=== PATIENT | female | born 1990 | race Caucasian/White ===

== ENCOUNTER 2017-06-04 14:51 | Outpatient (CLI) | payer BC ==
[~2017-06-04] VITALS: Ht 157.5 cm; Wt 63.6 kg
[2017-06-04 15:12] VITALS: BP 123/77; PULSE 73; TEMP 98.1
[2017-06-04] MEDS ORDERED: PRENATAL MVI (15:16)
[2017-06-04 16:35] VITALS: BP 107/73; PULSE 71
== END 2017-06-04 16:55 | disposition home or self-care (01) ==
LOC: LDRO 14:51 → LDR 15:00 → LDRO 16:55
DX: Z34.03 Encounter for supervision of normal first pregnancy, third trimester (principal); Z3A.38 38 weeks gestation of pregnancy
CPT/HCPCS: OP

== ENCOUNTER 2017-06-04 22:44 | Inpatient (IN) | payer BC ==
[~2017-06-04] VITALS: Ht 157.5 cm; Wt 63.6 kg
[~2017-06-04 22:44] MED LIST: PRENATAL MVI
[2017-06-04 23:30] VITALS: BP 112/75; PULSE 57; TEMP 97.7
[2017-06-05] VITALS (73 sets, daily range): BP systolic 93–148; BP diastolic 48–86; PULSE 59–114; TEMP 97.4–98.3
[2017-06-05 05:57] LABS: BASO % 0.3 % (0.0-2.0); EOS # 0.1 (0.0-0.7); EOS % 1.2 % (0-4.0); GRAN # 8.9 (1.4-6.5); GRAN % 76.8 % (42.2-75.2); HEMATOCRIT 36.1 % (37.0-47.0); HEMOGLOBIN 12.4 g/dl (12.5-16.0); LYMPH # 1.8 (1.2-3.4); LYMPH % 15.7 % (20.0-51.0); MEAN CELL VOLUME 88 fl (80.0-100.0); MEAN CORPUSCULAR HEMOGLOBIN 30 pg (27.0-31.0); MEAN CORPUSCULAR HGB CONC 34 g/dl (33.0-37.0); MEAN PLATELET VOLUME 10.1 fl (7.4-10.4); MONO # 0.6 (0.1-0.6); MONO % 5.5 % (1.7-9.3); PLATELET COUNT 203 K/mm3 (130-400); RED BLOOD COUNT 4.12 M/mm3 (4.10-5.30); REDCELL DISTRIBUTION WIDTH-CV 12.1 % (11.5-14.5); WHITE BLOOD COUNT 11.6 K/mm3 (4.8-10.8)
[2017-06-06 00:15] VITALS: BP 100/62; PULSE 87
[2017-06-06 01:15] VITALS: BP 100/64; PULSE 104
[2017-06-06 05:24] VITALS: BP 102/68; PULSE 92; TEMP 98
[2017-06-06 07:45] VITALS: BP 128/72; PULSE 82; TEMP 97.4
[2017-06-06 20:30] VITALS: BP 106/61; PULSE 90; TEMP 97.6
[2017-06-07 07:59] VITALS: BP 94/55; PULSE 103; TEMP 98.9
[2017-06-07] MEDS ORDERED: PERCOCET 325 MG1 TA2 PO (08:46)
[2017-06-07] MEDS ORDERED: IBU600 MG PO (08:46)
[2017-06-07 16:00] VITALS: BP 89/52; PULSE 78; TEMP 97.3
[2017-06-07 21:30] VITALS: BP 106/64; PULSE 97; TEMP 98.5
[2017-06-08 08:08] VITALS: BP 94/48; PULSE 68; TEMP 98
== END 2017-06-08 12:20 | disposition home or self-care (01) | DRG 766 ==
LOC: LDRO 22:44 → LDR 06-05 05:04 → OB 06-05 05:04
PROVIDERS: Obstetrics & Gynecology
PROC: 10D00Z1 Extraction of Products of Conception, Low, Open Approach (ICD-10-PCS; principal; 2017-06-05)
DX: O62.0 Primary inadequate contractions (principal); O76 Abnormality in fetal heart rate and rhythm complicating labor and delivery; Z3A.39 39 weeks gestation of pregnancy; Z37.0 Single live birth
CPT/HCPCS: OP; J0595; J0690; J1885; J2210; J2270; J2370; J2400; J2405; J2590; J7120

== ENCOUNTER 2018-11-29 12:22 | Outpatient (CLI) | payer BC ==
[~2018-11-29] VITALS: Ht 157.5 cm; Wt 67.3 kg
--- NOTE | 2018-11-29 12:15 | NUR ---
Patient arrives ambulatory with spouse from office for monitoring. Patient reports contractions that have increased in frequency to 2-3 minutes. Patient denies bleeding or ROM. Reports normal movement. Changes into gown, EFM explained and placed. VSS. Assessment completed. 1225- Dr. Adam notified via Cyndee Rich RN. Reviewed FHR strip and ctx pattern since admit. Orders to recheck patient at this time and monitor over one hour. 1230- SVE by Cyndee Rich RN . Patient repositioned WL and updated on plan of care.
[~2018-11-29 12:22] MED LIST changes: +IBU600 MG PO; +PERCOCET 325 MG1 TA2 PO
--- NOTE | 2018-11-29 12:45 | NUR ---
Dr. Adam on unit. Reviewed FHR strip. Orders for LR bolus at this time. Physician remains on unit. 1305- Patient repositioned RL. 1315- IV started in RH by Laura Tucker RN. LR bolus infusing. 1325- Dr. Adam on unit, reviews FHR strip. Orders to monitor patient over another hour and recheck at 1430. Update physician at that time.
[2018-11-29 13:00] VITALS: BP 124/80; PULSE 79; TEMP 98.1
[2018-11-29 13:03] VITALS: BP 124/80; PULSE 79; TEMP 98.1
[2018-11-29 13:30] VITALS: BP 113/61; PULSE 84
[2018-11-29 14:00] VITALS: BP 103/70; PULSE 99
--- NOTE | 2018-11-29 14:15 | NUR ---
Patient states contractions are "about the same". Resting in bed, repositioned RL.
--- NOTE | 2018-11-29 14:30 | NUR ---
SVE unchanged. Patient repositioned LL. Patient reports contractions "are about the same". See physician notification.
[2018-11-29 14:45] VITALS: BP 90/60; PULSE 100
--- NOTE | 2018-11-29 15:00 | NUR ---
Patient given discharge instructions. Reviewed labor precuations and kick counts. Encouraged to follow up as scheduled and drink at least 100 oz water daily. Patient verbalizes understanding and leaves ambulatory.
== END 2018-11-29 15:00 | disposition home or self-care (01) ==
LOC: LDRO 12:22
DX: O62.9 Abnormality of forces of labor, unspecified (principal); Z3A.37 37 weeks gestation of pregnancy
CPT/HCPCS: J7120

== ENCOUNTER 2018-11-30 20:16 | Outpatient (CLI) | payer SELFPAY ==
[~2018-11-30] VITALS: Ht 157.5 cm; Wt 67.7 kg
--- NOTE | 2018-11-30 20:20 | NUR ---
37 weeks 5 days arrives to unit ambulatory with spouse with complaint of decreased movement. Pt states that usually on her drive home from work around 5 baby is very active and baby has not been as active as normal. Was able to barely to feel 10 movements in 2 hours when doing kick counts. Pt had a previous c/section and was recently seen as a labor check and discharged after SVE /-3 x 2. EFM and toco explained and applied. Vital signs obtained. Admission assessment started. Plan of care discussed. supportive at bedside.
--- NOTE | 2018-11-30 20:40 | NUR ---
Category 1 tracing verified with charge nurse, Daniel, CAYDEN. Pt has felt baby move a couple of times since admission. Dr. Duenas notified, see physician notification.
[2018-11-30 20:45] VITALS: BP 116/77; PULSE 82
--- NOTE | 2018-11-30 20:55 | NUR ---
Pt discharge home at this time. Discharge instructions and education reviewed, pt verbalized understanding. Pt seen ambulating off unit with spouse.
== END 2018-11-30 20:55 | disposition home or self-care (01) ==
LOC: LDRO 20:16
DX: O36.8130 Decreased fetal movements, third trimester, not applicable or unspecified (principal); Z3A.37 37 weeks gestation of pregnancy

== ENCOUNTER 2018-12-09 04:10 | Inpatient (IN) | payer SELFPAY ==
--- NOTE | 2018-11-29 12:15 | NUR ---
Patient arrives ambulatory from office for monitoring. Patient states she has been alejandra since yesterday "on and off" and they have increased in frequency to every 2-3 minutes. SVE per INGE Hodgson in office . Patient denies vaginal bleeding or ROM and reports normal movement. Changes into gown, EFM explained and placed. VSS. Assessment completed. Gross audible movement noted. 1225- Dr. Adam notified of patient arrival by Cyndee Rich RN. Reviewed FHR strip and ctx pattern since arrival. Orders to recheck cervix at this time and then recheck in one hour. 1230- SVE per Cyndee Rich RN . Patient repositioned WL and updated on plan of care.
[2018-11-29 12:26] VITALS: BP 124/80; PULSE 79; TEMP 98.1
[2018-12-09] VITALS (19 sets, daily range): BP systolic 89–116; BP diastolic 46–81; PULSE 73–104; TEMP 97.8–98.4
[~2018-12-09] VITALS: Ht 157.5 cm; Wt 68.6 kg
--- NOTE | 2018-12-09 06:15 | NUR ---
PATIENT IN BED WITH EFM ON ABDOMEN. PATIENT DENIES CONTRACTIONS, BLEEDING, LEAKING OF FLUID. PATIENTS ADMISSION ASSESMENT COMPLETE. PATIENTS CONSENTS SIGNED BY MAYANK Wheatley RN. PATIENT READY FOR SURGERY
[2018-12-09 06:53] LABS: BASO % 0.1 % (0.0-2.0); EOS # 0.1 (0.0-0.7); EOS % 1.3 % (0-4.0); GRAN # 7.1 (1.4-6.5); GRAN % 75.6 % (42.2-75.2); HEMATOCRIT 38.7 % (37.0-47.0); HEMOGLOBIN 12.7 g/dl (12.5-16.0); LYMPH # 1.6 (1.2-3.4); LYMPH % 17.3 % (20.0-51.0); MEAN CELL VOLUME 89 fl (80.0-100.0); MEAN CORPUSCULAR HEMOGLOBIN 29 pg (27.0-31.0); MEAN CORPUSCULAR HGB CONC 33 g/dl (33.0-37.0); MEAN PLATELET VOLUME 9.8 fl (7.4-10.4); MONO # 0.5 (0.1-0.6); MONO % 5.3 % (1.7-9.3); PLATELET COUNT 226 K/mm3 (130-400); RED BLOOD COUNT 4.37 M/mm3 (4.10-5.30); REDCELL DISTRIBUTION WIDTH-CV 12.3 % (11.5-14.5)
[2018-12-09] MEDS ORDERED: PERCOCET 325 MG1 TA2 PO (09:45)
[2018-12-09] MEDS ORDERED: IBU800 M1 PO (09:45)
--- NOTE | 2018-12-09 10:05 | NUR ---
Initial visit; Patient thanked Senior Cobol Developer for looking in on her and offering God's blessings for a safe upcoming delivery.
[2018-12-10 00:05] VITALS: BP 92/51; PULSE 77; TEMP 97.4
[2018-12-10 04:14] VITALS: BP 97/63; PULSE 76; TEMP 97.6
[2018-12-10 06:50] VITALS: BP 96/61; PULSE 83; TEMP 97.8
== END 2018-12-10 17:00 | disposition home or self-care (01) | DRG 788 ==
LOC: LDR → OB 04:10 → LDR 12:33 → OB 12-10 17:00
PROVIDERS: ADMIT Student in an Organized Health Care Education/Training Program
PROC: 10D00Z1 Extraction of Products of Conception, Low, Open Approach (ICD-10-PCS; principal; 2018-12-09)
DX: O34.211 Maternal care for low transverse scar from previous cesarean delivery (principal); Z3A.39 39 weeks gestation of pregnancy; Z37.0 Single live birth; Z88.2 Allergy status to sulfonamides; O69.89X0 Labor and delivery complicated by other cord complications, not applicable or unspecified
CPT/HCPCS: J0690; J1885; J2370; J2405; J2590; J7120

== ENCOUNTER → 2021-08-07 | Outpatient (CLI) | payer MEDICAID ==
[~2021-08-07] MED LIST changes: +CLARITIN 1010 MG/TAB; +IBU800 M1 PO
== END ==
LOC: DIA.ED 09:28
DX: O24.419 Gestational diabetes mellitus in pregnancy, unspecified control (principal)
CPT/HCPCS: G0108

== ENCOUNTER → 2021-09-04 | Outpatient (CLI) | payer MEDICAID | LOC: DIA.ED 08:40 | DX: O24.419 Gestational diabetes mellitus in pregnancy, unspecified control (principal) | CPT/HCPCS: G0108 ==

== ENCOUNTER 2021-09-21 15:33 | Outpatient (CLI) | payer MEDICAID ==
[~2021-09-21] VITALS: Ht 157.5 cm; Wt 67.3 kg
[~2021-09-21 15:33] MED LIST changes: -CLARITIN 1010 MG/TAB
--- NOTE | 2021-09-21 15:45 | NUR ---
1545-G3L1 38.[address] UPURES AMBULATORY TO LR 3 WITH COMPLAINT OF CONTRACTIONS SINCE 1400. PATIENT DENIES LOF OR VB AND REPORTS GOOD FM. SVE BY CAYDEN LOJA /3. UPDATED ON PLAN OF CARE AND ASSESSMENT COMPLETE. 1610-DR. KELLEY CALLED UNIT FOR UPDATE ON PATIEN-REVIEWED PATIENT EXAM AND STRIP. ORDERS TO START IV AND GIVE NS 500ML BOLUS AND 1 G TYLENOL. IV STARTED BY CAYDEN BRYANT AND TYLENOL ADMINISTERED AND BOLUS STARTED SEE EMAR. 1730-DR. KELLEY CALLED UNIT AND RECIEVED UPDATE THAT SVE IS UNCHANGED AND PATIENT CONTINUES TO EASILY BREATH THROUGH IRREGULAR CONTRACTIONS. ORDER TO DISCHARGE HOME RECIEVED. 1735-PATIENT OFF EFM AND DISCHARGE PAPERS REVIEWED BY CAYDEN BRYANT WITH PATIENT. 1740-AMBULATORY OFF UNIT WITH SPOUSE.
[2021-09-21] MEDS ORDERED: CLARITIN 1010 MG/TAB (15:49)
[2021-09-21 16:00] VITALS: BP 123/70; PULSE 103; TEMP 98.3
== END 2021-09-21 17:40 | disposition home or self-care (01) ==
LOC: LDRO 15:33 → LDR 15:45 → LDRO 17:40
DX: O62.9 Abnormality of forces of labor, unspecified (principal); Z3A.38 38 weeks gestation of pregnancy; Z86.16 Personal history of COVID-19
CPT/HCPCS: OP; J7040

== ENCOUNTER 2021-10-01 05:37 | Inpatient (IN) | payer MEDICAID ==
[2021-10-01] VITALS (19 sets, daily range): BP systolic 80–109; BP diastolic 44–72; PULSE 61–100; TEMP 97.7–99.3
[~2021-10-01] VITALS: Ht 157.5 cm; Wt 66.8 kg
[~2021-10-01 05:37] MED LIST changes: +CLARITIN 1010 MG/TAB
--- NOTE | 2021-10-01 05:40 | NUR ---
G3L2 arrives to unit ambulatory for scheduled section. Pt oriented to room, call light within reach, bed in low and locked position. Clean gown on. Pt reports feeling good movement, denies strong contractions, loss of fluid, or vaginal bleeding. US and toco explained and applied. Vital signs obtained. 18G IV started in right hand with 1 attempt. Admission labs obtained off IV start. Lactated Ringers infusing to gravity. Consents reviewed and signed with patient and spouse.
[2021-10-01 07:01] LABS: BASO % 0.3 % (0.0-2.0); EOS # 0.5 K/mm3 (0.0-0.7); EOS % 5.2 % (0-4.0); GRAN # 6.8 K/mm3 (1.4-6.5); GRAN % 72.7 % (42.2-75.2); HEMOGLOBIN 11.9 g/dl (12.5-16.0); LYMPH # 1.5 K/mm3 (1.2-3.4); LYMPH % 16.4 % (20.0-51.0); MEAN CELL VOLUME 88 fl (80.0-100.0); MEAN CORPUSCULAR HEMOGLOBIN 30 pg (27.0-31.0); MEAN CORPUSCULAR HGB CONC 34 g/dl (33.0-37.0); MEAN PLATELET VOLUME 10.3 fl (7.4-10.4); MONO # 0.5 K/mm3 (0.1-0.6); MONO % 4.9 % (1.7-9.3); PLATELET COUNT 220 K/mm3 (130-400); RED BLOOD COUNT 3.99 M/mm3 (4.10-5.30)
[2021-10-01 07:05] LABS: HEMATOCRIT 35.2 % (37.0-47.0)
--- NOTE | 2021-10-01 17:09 | NUR ---
1700ATTEMPTED TO AMBULATE AT THIS TIME. PATIENT REMAINS WEAK IN RIGHT LEG. SHE ATTEMPTED TO TAKE A STEP AND WAS UNABLE TO BEAR WEIGHT. SETTLED PATIENT BACK IN BED AND CHANGED PADS. WILL ATTEMPT TO AMBULATE LATER.
[2021-10-02 07:40] VITALS: BP 101/67; PULSE 78; TEMP 98.3
--- NOTE | 2021-10-02 09:21 | NUR ---
Initial visit; Patient indisposed, her came to the door and Cell Geneticist offered congratulations to the family for the of their son and informed him of the availability of [facility]. Patient's thanked Cell Geneticist for stopping by.
[2021-10-02 17:37] VITALS: BP 97/60; PULSE 101; TEMP 98.4
--- NOTE | 2021-10-02 18:30 | NUR ---
Report recieved. In shower at this time.
[2021-10-02 19:00] VITALS: BP 87/55; PULSE 86; TEMP 97.8
[2021-10-03 07:30] VITALS: BP 107/66; PULSE 89; TEMP 98
[2021-10-03] MEDS ORDERED: IBU800 M1 PO (09:11)
[2021-10-03] MEDS ORDERED: PERCOCET 325 MG1 TA2 PO (09:11)
== END 2021-10-03 11:35 | disposition home or self-care (01) | DRG 788 ==
LOC: OB 05:37
PROVIDERS: ADMIT Student in an Organized Health Care Education/Training Program
PROC: 10D00Z1 Extraction of Products of Conception, Low, Open Approach (ICD-10-PCS; principal; 2021-10-01)
DX: O34.211 Maternal care for low transverse scar from previous cesarean delivery (principal); O24.420 Gestational diabetes mellitus in childbirth, diet controlled; O35.8XX0 Maternal care for other (suspected) fetal abnormality and damage, not applicable or unspecified; Z3A.39 39 weeks gestation of pregnancy; Z37.0 Single live birth; Z88.2 Allergy status to sulfonamides
CPT/HCPCS: J0171; J0690; J1100; J1885; J2370; J2405; J2590; J7120

== ENCOUNTER 2023-12-19 14:20 | Outpatient (CLI) | payer MEDICAID ==
[~2023-12-19] VITALS: Ht 157.5 cm; Wt 66.4 kg
[2023-12-19 14:30] VITALS: BP 122/78; PULSE 86
[2023-12-19 15:03] VITALS: BP 111/73; PULSE 80
--- NOTE | 2023-12-19 15:04 | NUR ---
1500 NO CHANGES. FHT [address] KELLEY HERE AND MONITOR STRIP REVIEWED. ORDERS GIVNE TO DISMISS TO HOME AT THIS TIME. ALL DISCHARGE INSTRUCTIONS GIVEN TO PATIENT AND FAMILY
== END 2023-12-19 15:09 | disposition home or self-care (01) ==
LOC: LDRO 14:20
DX: Z34.93 Encounter for supervision of normal pregnancy, unspecified, third trimester (principal); Z3A.31 31 weeks gestation of pregnancy

== ENCOUNTER 2024-02-08 09:29 | Inpatient (IN) | payer MEDICAID ==
[2024-02-08] VITALS (17 sets, daily range): BP systolic 74–124; BP diastolic 48–85; PULSE 65–94; TEMP 97.9–98.8
[~2024-02-08] VITALS: Ht 157.5 cm; Wt 70.0 kg
--- NOTE | 2024-02-08 09:30 | NUR ---
PT AMBULATORY TO UNIT WITH SPOUSE FOR SCHEDULED C/S. PT CHANGED INTO CLEAN GOWN AND COMFORTABLE IN BED. THIS RN AT BEDSIDE TO PLACE TOCO AND EFM. PT DENIES LEAKING OF FLUID, AND DENIES ANY VAGINAL BLEEDING. PT STATES FEELING BABY MOVE THIS MORNING, AND PT STATES FEELING THE OCCASIONAL CTX, BUT NO REGULAR PATTERN. THIS RN DISCUSSES POC WITH PT. PT VERBALIZES UNDERSTANDING.
[2024-02-08] MEDS ORDERED: Ondansetron 4 MG/2 ML VIAL IV PRN ×2 (09:45→12:15)
[2024-02-08] MEDS ORDERED: LR 1,000 ML IV SCH ×2 (09:45)
[2024-02-08] MEDS ORDERED: Meperidine 50 MG/ML 1 ML VIAL IV PRN (09:45)
[2024-02-08] MEDS ORDERED: diphenhydrAMINE 50 MG/ML 1 ML VIAL IV PRN (09:45)
[2024-02-08] MEDS ORDERED: VITAMIN D250 MCG PO (09:55)
[2024-02-08] MEDS ORDERED: LEXAPRO 5MG5 MG PO (09:55)
[2024-02-08] MEDS ORDERED: NS 30 ML IV ONE (10:08)
[2024-02-08] MEDS ORDERED: Ketorolac 30 MG/ML VIAL ONE (10:08)
[2024-02-08] MEDS ORDERED: Oxytocin 10 UNITS/ML VIAL ONE (10:08)
[2024-02-08] MEDS ORDERED: Ondansetron 4 MG/2 ML VIAL ONE (10:08)
[2024-02-08] MEDS ORDERED: dexAMETHasone 10 MG/ML VIAL ONE (10:08)
[2024-02-08] MEDS ORDERED: Phenylephrine 10 MG/ML VIAL ONE (10:09)
[2024-02-08] MEDS ORDERED: EPINEPHrine 1 MG/1 ML Ampule ONE (10:09)
[2024-02-08 10:25] LABS: BASO % 0.3 % (0.0-2.0); EOS # 0.2 K/mm3 (0.0-0.7); EOS % 1.6 % (0.0-4.0); GRAN # 8.4 K/mm3 (1.4-6.5); HEMOGLOBIN 12.2 g/dl (12.5-16.0); LYMPH # 1.9 K/mm3 (1.2-3.4); LYMPH % 17.3 % (20.0-51.0); MEAN CELL VOLUME 89 fl (80.0-100.0); MEAN CORPUSCULAR HEMOGLOBIN 29 pg (27-31); MEAN CORPUSCULAR HGB CONC 33 g/dl (33.0-37.0); MEAN PLATELET VOLUME 9.9 fl (7.4-10.4); MONO # 0.5 K/mm3 (0.1-0.6); MONO % 4.2 % (1.7-9.3); PLATELET COUNT 282 K/mm3 (130-400); RED BLOOD COUNT 4.16 M/mm3 (4.10-5.30); REDCELL DISTRIBUTION WIDTH-CV 12.5 % (11.5-14.5)
[2024-02-08 11:03] LABS: HEMATOCRIT 36.9 % (37.0-47.0)
[2024-02-08] MEDS ORDERED: LR 1,000 ML IV PRN (12:15)
[2024-02-08] MEDS ORDERED: Measles/Mumps/Rubella Virus Vaccine Live w Diluent 0.5 ML VIAL SQ SCH (12:15)
[2024-02-08] MEDS ORDERED: oxyCODONE 5 MG TAB PO PRN (12:15)
[2024-02-08] MEDS ORDERED: Acetaminophen 500 MG TAB PO SCH (12:15)
[2024-02-08] MEDS ORDERED: Magnes Hydrox (MOM) 80 MG/ML 30 ML CUP PO PRN (12:15)
[2024-02-08] MEDS ORDERED: Loratadine 10 MG TAB PO PRN (12:15)
[2024-02-08] MEDS ORDERED: Naloxone 0.4 MG/ML VIAL IV PRN (12:15)
[2024-02-08] MEDS ORDERED: Sennosides/Docusate 8.6-50 MG TAB PO SCH (17:00)
[2024-02-08] MEDS ORDERED: Ibuprofen 800 MG TAB PO SCH (18:10)
[2024-02-08] MEDS ORDERED: traZODone 50 MG TAB PO PRN (21:00)
[2024-02-09 02:00] VITALS: BP 118/66; PULSE 73; TEMP 98.3
[2024-02-09 07:00] VITALS: BP 100/69; PULSE 68; TEMP 97.7
--- NOTE | 2024-02-09 13:42 | NUR ---
Initial visit; Parents thanked Fire Equipment Repairer Inspector for offering congratulations and God's blessings for the of their son. Fire Equipment Repairer Inspector thanked family for choosing [facility].
[2024-02-09 16:58] VITALS: BP 108/59; PULSE 73; TEMP 98.2
[2024-02-09 19:00] VITALS: BP 111/59; PULSE 67; TEMP 97.8
--- NOTE | 2024-02-09 21:00 | NUR ---
PATIENT AMBULATED TO NURSERY AROUND 2100 TO OBSERVE BATH. 'S FATHER ALSO AT BEDSIDE. APPROX 15 MINS INTO BATH, PATIENT VOICED THAT SHE FELT "DIZZY". THIS RN TOLD PATIENT TO SIT IN CHAIR. PATIENT SAT. PATIENT GIVEN JUICE BY THIS RN AND EDUCATED TO INHALE ALCOHOL WIPES. AFTER APPROX 10 MINS, PATIENT REPORTS FEELING "SLIGHTLY BETTER, BUT STILL DIZZY". PATIENT PLACED IN WHEELCHAIR BY THIS RN AND WHEELED BACK TO ROOM. INFANT'S FATHER PUSHED BACK TO ROOM IN CRIB. PATIENT AMBULATED FROM WHEELCHAIR BACK TO BED. ICE PACK AND FAN PROVIDED TO PATIENT BY THIS RN. PATIENT REPORTS "BEGINNING TO FEEL BETTER". PATIENT ALSO REPORTS 6/10 PAIN AND REQUESTED PRN PAIN MEDICATION AT THIS TIME. PAIN MEDICATION ADMINISTERED PER ORDERS BY THIS RN. PATIENT RESTS IN BED AT THIS TIME.
[2024-02-09 21:30] VITALS: BP 101/55
--- NOTE | 2024-02-09 21:30 | NUR ---
PATIENT'S BP ASSESSED. BP 101/55. PATIENT REPORTS FEELING "MUCH BETTER" AND IS HAVING "LESS DIZZINESS". BLEEDING WNL. PATIENT CONTINUES TO REST IN BED AT THIS TIME.
[2024-02-10 07:00] VITALS: BP 114/74; PULSE 75; TEMP 97.8
[2024-02-10] MEDS ORDERED: ROXICODONE 55 MG/TAB PO (08:41)
[2024-02-10] MEDS ORDERED: TYLENOL 500MG500 MG PO (08:41)
[2024-02-10 10:05] LABS: HEMOGLOBIN 10.3 g/dl (12.5-16.0); MEAN CELL VOLUME 90 fl (80.0-100.0); MEAN CORPUSCULAR HEMOGLOBIN 30 pg (27-31); MEAN CORPUSCULAR HGB CONC 33 g/dl (33.0-37.0); MEAN PLATELET VOLUME 9.2 fl (7.4-10.4); PLATELET COUNT 262 K/mm3 (130-400); RED BLOOD COUNT 3.43 M/mm3 (4.10-5.30); REDCELL DISTRIBUTION WIDTH-CV 12.9 % (11.5-14.5)
[2024-02-10 10:07] LABS: HEMATOCRIT 30.8 % (37.0-47.0)
--- NOTE | 2024-02-10 12:59 | NUR ---
DISCHARGE TEACHING COMPLETED. EDUCATED ON FOLLOW UP APPOINTMENTS AND PRESCRIPTIONS. QUESTIONS INVITED AND ANSWERED.
== END 2024-02-10 13:15 | disposition home or self-care (01) | DRG 788 ==
LOC: OB 09:29
PROVIDERS: ADMIT Student in an Organized Health Care Education/Training Program
PROC: 10D00Z1 Extraction of Products of Conception, Low, Open Approach (ICD-10-PCS; principal; 2024-02-08)
DX: O34.211 Maternal care for low transverse scar from previous cesarean delivery (principal); Z3A.39 39 weeks gestation of pregnancy; O99.344 Other mental disorders complicating childbirth; F32.A Depression, unspecified; O99.284 Endocrine, nutritional and metabolic diseases complicating childbirth; E04.9 Nontoxic goiter, unspecified; O24.420 Gestational diabetes mellitus in childbirth, diet controlled; Z37.0 Single live birth; Z88.2 Allergy status to sulfonamides
CPT/HCPCS: J0171; J0665; J0690; J1100; J1885; J2371; J2405; J2590; J7120